=== PATIENT | female | born 1950 ===

== ENCOUNTER 2024-12-28 07:06 | Emergency (ER) | payer OTHER ==
[~2024-12-28] VITALS: Ht 152.4 cm; Wt 72.6 kg
[2024-12-28] MEDS ORDERED: ENALAPRIL MALEAT5 MG (07:33)
[2024-12-28] MEDS ORDERED: KETOROLAC TROMETHAMINE 60 MG VIAL IM STA (08:43)
[2024-12-28] MEDS ORDERED: KETOROLAC TROMETHAMINE 60 MG VIAL IM ONE (08:49)
== END 2024-12-28 12:50 | disposition home or self-care (01) ==
LOC: ER 07:06
DX: S00.83XA Contusion of other part of head, initial encounter (principal); S52.90XA Unspecified fracture of unspecified forearm, initial encounter for closed fracture; W19.XXXA Unspecified fall, initial encounter; Y93.89 Activity, other specified; Y92.89 Other specified places as the place of occurrence of the external cause; Y99.8 Other external cause status; R10.9 Unspecified abdominal pain; I10 Essential (primary) hypertension
CPT/HCPCS: 29125; 70486; 73100; 96372; 99284; J1885